=== PATIENT | female | born 1965 | race Hispanic/Latino ===

== ENCOUNTER 2017-02-13 06:58 | Day surgery (SDC) | payer BC ==
[2017-02-13 08:07] LABS: INR 0.99 (0.87-1.13)
[2017-02-13 08:08] LABS: Partial Thromboplastin Time 40.4 Sec. (24.2-36.6)
--- NOTE | 2017-02-13 11:55 | Short Stay Summary ---
Short Stay Documentation Date of service: 02/13/17 - History Principal diagnosis: Back pain - Allergies and Medications Current Medications: Allergies Corticosteroids (Glucocorticoids) Allergy (Intermediate, Verified 02/13/17 07:22 ) Nausea sulfamethoxazole [From Bactrim] Allergy (Intermediate, Verified 02/13/17 07:22) Nausea trimethoprim [From Bactrim] Allergy (Intermediate, Verified 02/13/17 07:22) Nausea bupivacaine Allergy (Mild, Verified 02/13/17 07:22) Rash codeine Allergy (Mild, Verified 02/13/17 08:04) Rash promethazine HCl [From Phenergan] Allergy (Mild, Verified 02/13/17 07:22) Rash Home Medications Medication Instructions Recorded Confirmed Last Taken Type No Known Home Medications [No 02/13/17 02/13/17 Unknown History Reported Home Medications] - Physical exam General appearance: no acute distress - Brief post op/procedure progress note Date of procedure: 02/13/17 Pre-op diagnosis: Back pain Procedure: Lumbar myelogram Anesthesia: local Surgeon: SHAYE BENAVIDES Estimated blood loss: none Pathology: none Condition: stable - Disposition Condition at discharge: Good Disposition: DC-01 TO HOME OR SELFCARE Short Stay Discharge Plan Follow up with: CHUCK CHAVEZ MD [Primary Care Provider] - 7 Days
--- NOTE | 2017-02-13 12:05 | Cat Scan Report ---
Post myelogram CT of the lumbar spine. History: Lumbar radiculopathy. Procedure and findings: The study was performed immediately after myelography includes axial images, reformatted sagittal and coronal images. There is satisfactory opacification of the subarachnoid space. The contour of the thecal sac throughout the lumbar region is normal. There is no evidence of disc herniation or significant disc bulge. There is moderate narrowing of the disc space at L5-S1 with minimal vacuum disc phenomenon The bony structures are normal. The conus appears normal. Impression: No significant intradural or extradural abnormalities. Minimal degenerative disc disease is seen at L5-S1.
[2017-02-13 13:41] VITALS: BP 117/73
--- NOTE | 2017-02-13 15:03 | Fluoroscopy Report ---
Lumbar myelogram. History: Lumbar radiculopathy. Procedure and findings. The patient's skin surface overlying the lumbar region was prepped and draped using sterile technique. Local anesthetic was injected in the skin. Using fluoroscopic guidance, a 22-gauge spinal needle was advanced into the subarachnoid space at the L3-4 level. 12 cc of Hypaque 180 was injected. The contour of the thecal sac is normal. There is no evidence of extradural or intradural abnormalities. The nerve root sleeves appear symmetrical. The conus is unremarkable. Impression: Normal lumbar myelogram.
== END 2017-02-13 14:10 | disposition home or self-care (01) ==
LOC: CATHLABREC 06:58 → EDSTATUS 07:30 → CATHLABREC 14:10
PROVIDERS: ATTEND Orthopaedic Surgery
DX: M51.17 Intervertebral disc disorders with radiculopathy, lumbosacral region (principal); M43.17 Spondylolisthesis, lumbosacral region; Z88.6 Allergy status to analgesic agent; Z88.2 Allergy status to sulfonamides; Z88.8 Allergy status to other drugs, medicaments and biological substances
CPT/HCPCS: 36415; 62304; 72132; 85610; 85730; Q9965